=== PATIENT | female | born 1955 | race Two or more races ===

== ENCOUNTER → 2024-07-14 | Outpatient (CLI) | payer OTHER ==
[~2024-07-14] VITALS: Ht 170.2 cm; Wt 93.0 kg
[2024-07-14] MEDS: REGADENOSON 0.4 MG/5 ML SYRG IV ONE ×2 (09:55→09:58)
--- NOTE | 2024-07-14 14:13 | DVHSR ---
APPROVED REPORT Exam: Nuclear Stress Test BMI: 0 Stress Test Details HR Max Heart Rate (APMHR): 150 bpm Target HR (85% APMHR): 128 bpm BP ECG Stress ECG Conclusion The quality of the study is good. The stress and rest SPECT images demonstrate homogeneous radiotracer activity throughout the LV myoca rdium. The left ventricular systolic function is preserved with a calculated ejection fraction of 64%. There is no evidence of vasodilator induced myocardial ischemia. This is a normal myocardial perfusion study. NM EXAM: Myocardial Perfusion REST/STRESS Imaging Protocol: Rest Tc-99m/Stress Tc-99m 1 day Resting Data Rest SPECT myocardial perfusion imaging was performed in supine position 60 minutes following the int ravenous injection of 13.2 mCi of Tc-99m Sestamibi. Time of rest injection: 0830 Time of rest imagin Administration Route: IV Administration Site: Left Wrist Pharmacologic Stress Pharmacologic stress test was performed by injecting Regadenoson 0.4 mg IV push followed by the intra venous injection of 31 mCi of Tc-99m Sestamibi. Time of stress injection: 0954 Time of stress imagin Administration Route: IV Administration Site: Left Wrist Gated Stress SPECT was performed 60 minutes after stress injection. The images were gated to evaluate regional wall motion and calculate left ventricular ejection fracti on. Stress only was performed in the Supine position. Study Data Post stress, the left ventricular ejection was 64%.. Nuclear Conclusion The quality of the study is good. The stress and rest SPECT images demonstrate homogeneous radiotracer activity throughout the LV myoca rdium. The left ventricular systolic function is preserved with a calculated ejection fraction of 64%. There is no evidence of vasodilator induced myocardial ischemia. This is a normal myocardial perfusion study.
== END | disposition home or self-care (01) ==
LOC: XYW 07:53
PROVIDERS: ATTEND Internal Medicine
DX: Z01.810 Encounter for preprocedural cardiovascular examination (principal); I87.2 Venous insufficiency (chronic) (peripheral)
CPT/HCPCS: 78452; 93017; A9500; J2785

== ENCOUNTER → 2025-02-23 | Outpatient (CLI) | payer OTHER ==
[2025-02-23 13:35] LABS: Alanine Aminotransferase 20 U/L (7-40); Albumin 4.5 g/dL (3.2-4.8); Alkaline Phosphatase 56 U/L (46-116); Anion Gap 12 (5-15); BUN/Creatinine Ratio 22.7 (10.0-20.0); Bilirubin, Total 0.5 mg/dL (0.2-1.0); Blood Urea Nitrogen 20 mg/dL (9-23); Calcium 9.6 mg/dL (8.7-10.4); Carbon Dioxide 24 mmol/L (20-31); Chloride 103 mmol/L (98-107); Potassium 4.6 mmol/L (3.5-5.1); Sodium 139 mmol/L (136-145); Total Protein 7.5 g/dL (5.7-8.2)
[2025-02-23 13:44] LABS: Glucose 138 mg/dL (74-106)
[2025-02-23 14:02] LABS: Cholesterol 117 mg/dL (< 200)
[2025-02-23 14:05] LABS: HDL Cholesterol 35 mg/dL (40-59); Triglycerides 244 mg/dL (< 150)
== END | disposition home or self-care (01) ==
LOC: LAB 11:29
PROVIDERS: ATTEND Internal Medicine
DX: E11.22 Type 2 diabetes mellitus with diabetic chronic kidney disease (principal); N18.2 Chronic kidney disease, stage 2 (mild); E11.69 Type 2 diabetes mellitus with other specified complication; E78.2 Mixed hyperlipidemia; K76.0 Fatty (change of) liver, not elsewhere classified
CPT/HCPCS: 36415; 80053; 80061; 83036